=== PATIENT | male | born 1995 | race Caucasian/White ===

== ENCOUNTER 2017-04-02 11:35 | Emergency (ER) | payer OTHER ==
[~2017-04-02] VITALS: Wt 70.3 kg
[~2017-04-02 11:35] MED LIST: KEFLEX250 MG; KEFLEX500 MG PO; LORTAB 180 ML180 ML PO; MOTRIN400 MG PO; NKHM; OMNICEF250 MG/5 M PO
== END 2017-04-02 13:25 | disposition home or self-care (01) ==
LOC: ED 11:35
DX: S80.01XA Contusion of right knee, initial encounter (principal); R03.0 Elevated blood-pressure reading, without diagnosis of hypertension; W10.9XXA Fall (on) (from) unspecified stairs and steps, initial encounter; Y93.9 Activity, unspecified; Y92.9 Unspecified place or not applicable; Y99.9 Unspecified external cause status